=== PATIENT | male | born 1995 | race American Indian/Alaskan Native ===

== ENCOUNTER 2019-12-12 11:18 | Emergency (ER) | payer SELFPAY ==
--- NOTE | 2019-12-12 11:23 | Emergency Department Report ---
Blank Doc - Documentation Documentation: 23-year-old male that presents with SOB and heart palpations. HX of a-fib. This initial assessment/diagnostic orders/clinical plan/treatment(s) is/are subject to change based on patient's health status, clinical progression and re- assessment by fellow clinical providers in the ED. Further treatment and workup at subsequent clinical providers discretion. Patient/guardians urged not to elope from the ED as their condition may be serious if not clinically assessed and managed. Initial orders include: 1- Patient sent to MAIN ED for further evaluation and treatment 2- cardiac workup
[2019-12-12] MEDS ORDERED: SODIUM CHLORIDE 0.9% 1000 ML 1,000 ML IV ONE (12:05)
[2019-12-12] MEDS ORDERED: dilTIAZem 25 MG/5 ML INJ IV ONE ×2 (12:05→12:14)
--- NOTE | 2019-12-12 12:09 | XRay Report ---
CHEST 2 VIEWS 1152 INDICATION / CLINICAL INFORMATION: Chest Pain COMPARISON: None available. FINDINGS: SUPPORT DEVICES: None. HEART / MEDIASTINUM: No significant abnormality. LUNGS / PLEURA: No significant pulmonary or pleural abnormality. No pneumothorax. ADDITIONAL FINDINGS: No significant additional findings. IMPRESSION: No significant acute abnormality Signer Name: Heber White MD Signed: 12/12/2019 12:05 PM Workstation Name: [id number]
--- NOTE | 2019-12-12 12:10 | Emergency Department Report ---
ED Palpitations HPI - General Chief Complaint: Arrhythmia/Palpitations Stated Complaint: HEART RACING Time Seen by Provider: 12/12/19 11:21 Source: patient Mode of arrival: Ambulatory Limitations: No Limitations - History of Present Illness Initial Comments: 31-year-old male, history of A. fib diagnosed 1 year ago, presents to ED with palpitations. Patient reports he awoke this morning with sensation of heart racing and skipping beats. Patient states he was on medication for atrial fibrillation, but has been off for approximately 1 year. Patient does not know what medications he was taking. Patient reports some mild shortness of breath, denies chest pain. He reports he was drinking alcohol last night. Denies any drug use. MD Complaint: "heart racing", "skipped beats" -: This morning Context: awoke with symptoms Arrythmia History: atrial fibrillation Associated Symptoms: shortness of breath. denies: chest pain, syncope, cough - Related Data Previous Rx's Medication Instructions Recorded Last Taken Type Apixaban [Eliquis] 5 mg PO BID #60 tablet 12/12/19 Unknown Rx dilTIAZem [CarDIZEM] 30 mg PO Q8HR #90 tablet 12/12/19 Unknown Rx Allergies Allergy/AdvReac Type Severity Reaction Status Date / Time No Known Allergies Allergy Unverified 12/12/19 11:20 ED Review of Systems ROS: Stated complaint: HEART RACING Other details as noted in HPI Comment: All other systems reviewed and negative Constitutional: denies: chills, fever Respiratory: shortness of breath. denies: cough Cardiovascular: palpitations. denies: chest pain ED Past Medical Hx - Past Medical History Additional medical history: A FIB - Social History Smoking Status: Current Every Day Smoker - Medications Home Medications: Home Medications Medication Instructions Recorded Confirmed Last Taken Type Apixaban [Eliquis] 5 mg PO BID #60 tablet 12/12/19 Unknown Rx dilTIAZem [CarDIZEM] 30 mg PO Q8HR #90 tablet 12/12/19 Unknown Rx ED Physical Exam - General Limitations: No Limitations General appearance: alert, in no apparent distress - Head Head exam: Present: atraumatic, normocephalic - Eye Eye exam: Present: normal appearance, EOMI - ENT ENT exam: Present: mucous membranes moist - Neck Neck exam: Present: normal inspection - Respiratory Respiratory exam: Present: normal lung sounds bilaterally. Absent: respiratory distress - Cardiovascular Cardiovascular Exam: Present: tachycardia, irregular rhythm - GI/Abdominal GI/Abdominal exam: Present: soft. Absent: distended, tenderness - Extremities Exam Extremities exam: Present: normal inspection - Neurological Exam Neurological exam: Present: alert, oriented X3 - Psychiatric Psychiatric exam: Present: normal affect, normal mood - Skin Skin exam: Present: warm, dry, intact, normal color ED Course Vital Signs 12/12/19 12/12/19 12/12/19 11:20 11:54 11:56 Temperature 98.2 F Pulse Rate 64 130 H 108 H Respiratory 20 13 14 Rate Blood Pressure 129/95 130/94 O2 Sat by Pulse 96 95 100 Oximetry 12/12/19 12/12/19 12/12/19 12:01 12:04 12:05 Temperature Pulse Rate 141 H 118 H Respiratory 13 13 17 Rate Blood Pressure O2 Sat by Pulse 98 98 98 Oximetry 12/12/19 12/12/19 12/12/19 12:11 12:14 12:15 Temperature Pulse Rate 105 H 123 H 91 H Respiratory 22 14 Rate Blood Pressure 118/89 118/89 118/89 O2 Sat by Pulse 99 99 Oximetry 12/12/19 12/12/19 12/12/19 12:21 12:25 12:30 Temperature Pulse Rate 82 74 74 Respiratory 19 20 22 Rate Blood Pressure 118/89 118/89 115/78 O2 Sat by Pulse 100 99 99 Oximetry 12/12/19 12/12/19 12/12/19 12:35 12:41 12:45 Temperature Pulse Rate 88 92 H 88 Respiratory 24 23 16 Rate Blood Pressure 115/78 115/78 118/70 O2 Sat by Pulse 100 99 100 Oximetry 12/12/19 12/12/19 12/12/19 13:00 13:15 13:31 Temperature Pulse Rate 108 H 95 H 102 H Respiratory 23 10 L 19 Rate Blood Pressure 118/70 127/80 123/82 O2 Sat by Pulse 100 97 99 Oximetry - Consultations Consultation #1: 12/12/19 14:[address] Ramírez regarding patient. States patient can be discharged on Cardizem 30 mg 3 times daily and Eliquis 5 mg twice daily. Patient needs to follow-up in the office. ED Medical Decision Making - Lab Data Result diagrams: 12/12/19 12:16 12/12/19 12:16 - EKG Data -: EKG Interpreted by [facility] EKG shows normal: QRS complexes, ST-T waves Rate: normal - EKG Data Interpretation: other (Atrial fibrillation) - Radiology Data Radiology results: report reviewed, image reviewed - Medical Decision Making 23-year-old male with history of A. fib, diagnosed 1 year ago, presents to ED with palpitations. Patient found to be in A. fib with RVR, with heart rate as high as the 140s. Patient given diltiazem 10 mg IV, which improved heart rate. Rate remained normal, around 80s to 90s. Labs are normal. Chest x-ray unremarkable. I spoke with compliance specialist on-call, Dr. Ramírez, who recommends starting patient on Cardizem and Eliquis. States patient can be discharged with outpatient follow-up. Patient given Good Rx prescription card in addition to Eliquis discount card. I explained to patient the importance of taking these medications, including risk of stroke. Patient understands need for compliance. Outpatient follow-up information given. Return precautions given. - Differential Diagnosis ACS, electrolyte abnormality, drug use Critical care attestation.: If time is entered above; I have spent that time in minutes in the direct care of this critically ill patient, excluding procedure time. ED Disposition Clinical Impression: Atrial fibrillation with rapid ventricular response Disposition: TO HOME OR SELFCARE Is pt being admited?: No Condition: Stable Instructions: Atrial Fibrillation (ED) Prescriptions: dilTIAZem [CarDIZEM] 30 mg PO Q8HR #90 tablet Apixaban [Eliquis] 5 mg PO BID #60 tablet Referrals: GISELLE RAMÍREZ MD [Staff Physician] - 3-5 Days Time of Disposition: 14:20
[2019-12-12 12:23] LABS: Basophils # (Auto) 0.1 K/mm3 (0.0-0.1); Basophils % (Auto) 1.4 % (0.0-1.8); Eosinophils # (Auto) 0.1 K/mm3 (0.0-0.4); Eosinophils % (Auto) 1.4 % (0.0-4.3); Hematocrit 47.5 % (35.5-45.6); Hemoglobin 16.3 gm/dl (11.8-15.2); Lymphocytes # (Auto) 1.5 K/mm3 (1.2-5.4); Lymphocytes % (Auto) 25.7 % (13.4-35.0); Mean Corpuscular HGB Conc 34 % (32-34); Mean Corpuscular Volume 96 fl (84-94); Monocytes # (Auto) 0.9 K/mm3 (0.0-0.8); Monocytes % (Auto) 15.3 % (0.0-7.3); Platelet Count 274 K/mm3 (140-440); Red Blood Count 4.94 M/mm3 (3.65-5.03); Red Cell Distribution Width 12.1 % (13.2-15.2)
[2019-12-12 12:31] LABS: INR 0.99 (0.87-1.13)
[2019-12-12 12:32] LABS: Partial Thromboplastin Time 28.1 Sec. (24.2-36.6)
[2019-12-12 12:46] LABS: Alanine Aminotransferase 10 units/L (7-56); Albumin 4.4 g/dL (3.9-5); BUN/Creatinine Ratio 11; Blood Urea Nitrogen 9 mg/dL (9-20); Calcium 9.4 mg/dL (8.4-10.2); Hemolysis Index 6
[2019-12-12] MEDS ORDERED: ENOXAPARIN 100 MG/1 ML INJ SUB-Q ONE (12:48)
[2019-12-12] MEDS ORDERED: APIXABAN 5 MG TAB PO ONE (14:18)
[2019-12-12 14:30] VITALS: BP 123/82
== END 2019-12-12 14:26 | disposition home or self-care (01) ==
LOC: ED 11:18
DX: I48.91 Unspecified atrial fibrillation (principal); F17.200 Nicotine dependence, unspecified, uncomplicated; Z79.899 Other long term (current) drug therapy
CPT/HCPCS: 36415; 71046; 80053; 84484; 85025; 85610; 85730; 93005; 96361; 96374; 99284; J7030